=== PATIENT | female | born 1970 | race Caucasian/White ===

== ENCOUNTER 2025-03-23 08:34 | Outpatient (OUT) | payer OTHER, SELFPAY ==
--- OUTSIDE RECORDS SUMMARY | 2024-02-21 09:00 | XMS_ITS ---
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 Chavis, Needs refill of med as well Medications Medication SIG (Take, Route, Frequency, Duration) Notes Start Date End Date Status Valsartan-hydroCHLOROthiaz kurt 160-12.5 MG 1 tablet Orally Once a day for 90 days 02/21/2024 Active Social History Tobacco Use: Social History Observation Description Date Details (start date - stop date) Current Smoker 08/09/1986 - NA Tobacco Control (Standard) Question Answer Notes Tobacco use: Current smoker When did you start smoking? 08/09/1986 How often do you smoke cigarettes? Every day How many cigarettes a day do you smoke? 11-20 Additional Findings: Tobacco user Modera te cigarette smoker (10-19 cigs/day) AUDIT-C (Standard) Question Answer Notes Did you have a drink contain ing alcohol in the past year? Yes How often did you have six o r more drinks on one occasion in the past year? 2 to 4 times a month (2 points) How many drinks did you have on a typical day when you were drinking in the past year? 1 or 2 drinks (0 point) How often did you have a dri nk containing alcohol in the past year? 2 to 3 times a week (3 points) Points 5 Interpretation Positive Problems Problem Type SNOMED Code ICD Code Onset Dates Problem Status W/U Status Risk Notes Problem Smoker (16209674) Smoker (F17.200) Active confirmed Problem Aneurysm (12649333) Aneurysm (I72.9) Active confirmed Problem Hypertension (58208467) Hypertension (I10) Active confirmed Problem Hypertension (96421671) HTN (hypertension) (I10) Active confirmed Vital Signs Weight 159.2 lbs 02/21/2024 Height 66 in 02/21/2024 Blood pressure systolic 152 mm Hg 02/21/20 24 Blood pressure diastolic 90 mm Hg 024 BMI 25.69 kg/m2 02/21/2024 Encounters Encounter Location Date Provider Diagnosis [facility] [address] [place] [address] 02/21/2024 Lillie Dillard HTN (hypertension) I10 Assessments Encounter Date Diagnosis (ICD Code) Assessment Notes Treatment Notes Treatment Clinical Notes Section Notes 02/21/2024 HTN (hypertension) (ICD-10 - I10) little high today continue monitor Plan Of Treatment Medication Medication Name Sig Start Date Stop Date Notes Valsartan-hydroCHLOROthiazid e 160-12.5 MG 1 tablet Orally Once a day for 90 days 02/21/2024 Treatment Notes Assessment Notes HTN (hypertension) little high today continue monitor Next Appt Details Follow Up: 1 Year,prn, Reaso n: Progress Notes * IVAN MaiteDOB: [birth year] (54 yo F)Acc No.[id number]:02/21/2024 New Patient Patient: Maite BUTLER Provider: Nereyda Dillard ([facility]), CAMOUFLAGE SPECIALIST :1970 A ge:54 Y S ex:Female Date:02/21/2024 [address] [address] Check In:01:06 PM ESTCheck O ut:01:37 PM EST Subjective: * Chief Complaints: * 1 . 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 Chavis. 2. Needs refill of med as well. * HPI: D epression Screening: PHQ-2 (2015 Edition) L ittle interest or pleasure in doing things??Not at all F eeling down, depressed, or hopeless? N ot at all T otal Score 0 G eneral: hx brain aneursym, saw neuro, told to follow only with headaches some SOB, tightness at times, smokes labs last year about this time, wants to skip a year, labs ok smokes, would like to quit, has tried many things, tried chantix thinking about laser accupuncture procedure next. * ROS: G eneral/Constitutional: Fever d enies. H eadache d enies. W eight loss?denies. O phthalmologic: Discharge d enies. E ye Pain d enies. I tching and redness d enies. E NT: Nasal discharge d enies. N carson congestion d enies.?Sore throat d enies. C ardiovascular: Chest tightness/ heavy pressure d enies. R apid heart rate d enies. S welling of extremities d enies. C hest pain d enies. ? R espiratory: Productive cough d enies. C hest pain d enies. C ough d enies. S hortness of breath a dmits, chronic. W heezing d enies. G astrointestinal: Abdominal pain d enies. C onstipation d enies. D ecreased appetite d enies. D iarrhea d enies. N ausea d enies. V omiting?denies. G enitourinary: Urinary incontinence d enies. P ainful urination d enies. M usculoskeletal: Back pain d enies. N luda pain d enies. M uscle aches d enies. S kin: Rash d enies. S kin lesion(s) d enies. ? * Active Problem List I10 Hypertension Modified On:02/21/2024/U Status:confirmed I72.9 Aneurysm Modified On:02/21/2024/U Status:confirmed I10 HTN (hypertension) Modified On:02/21/2024/U Status:confirmed F17.200 Smoker Modified On:02/21/2024U Status:confirmed * Medical History: H ypertension, Aneurysm, Smoker. * Surgical History: T onsillectomy , Aneurysm Brain . * Hospitalization/Major Diagno stic Procedure: s ee above , Child . * Family History: F ather: , Kidney Cancer, Esophageal Cancer, diagnosed with Unspecified essential hypertension, Other malignant neoplasm of unspecified site, Chronic kidney disease, unspecified. M other: alive, Atrial Fibrillation. B rother(s): alive. S ister(s): anxietyAneurysm brain- , diagnosed with Unspecified essential hypertension. D nael(s): alive. P aternal Grandmother: Aortic Aneurysm. 1 brother(s) , 2 sister(s) - healthy. 2 daughter(s) - healthy. .? 1 sister . * Social History: T obacco Use: T obacco Control (Standard) T obacco use: C urrent smoker W hen did you start smoking? 0 08/09/1986 H ow often do you smoke cigarettes? E very day H ow many cigarettes a day do you smoke? 1 1-20 A dditional Findings: Tobacco user M oderate cigarette smoker (10-19 cigs/day) D rug/Alcohol: A RADHA-C (Standard) D id you have a drink containing alcohol in the past year? Y es H ow often did you have six or more drinks on one occasion in the past year? 2 to 4 times a month (2 points) H ow many drinks did you have on a typical day when you were drinking in the past year? 1 or 2 drinks (0 point) H ow often did you have a drink containing alcohol in the past year? 2 to 3 times a week (3 points) P oints 5 I nterpretation P ositive * Medications: T aking Valsartan-hydroCHLOROthiazide 160-12.5 MG Tablet 1 tablet Orally Once a day * Allergies: N .K.D.A. Objective: * Vitals: W t:159.2lbs, Ht: 66 in, BP:152/90mm Hg, BMI:25.69Index, Ht-cm: 167.64 cm, Wt-k.21 kg. * Examination: G eneral Examinations: GENERAL APPEARANCE: a lert and oriented, i n no acute distress. EYES: conjunctiva normal, sclera non-icteric. LUNGS: c lear to auscultation bilaterally. CARDIO: regular rate and rhythm, S1, S2 normal, no murmurs, no edema. ABDOMEN: s oft, nontender. MUSCULOSKELETAL G ait and station normal. SKIN: warm and dry. Assessment: * Assessment: 1. H TN (hypertension) - I10 (Primary) Plan: * Treatment: * Preventive Medicine: Screenings/Counseling: B [facility] ACTION PLAN Above Normal BMI Follow-up D ietary management education, guidance, and counseling * Follow Up: 1 Year,prn * * Sign off status: Completed Visit Status: C HK (Check Out) true * Provider: Nereyda Dillard ([facility]), CAMOUFLAGE SPECIALIST Date: 0 02/21/2024 Generated for Rasheeda wilson/Pepe/eTransmitting on: 0 03/23/2025 08:41 AM EDT History and Physical Notes * HPI (History of Present Illness) Category Sub-Category Detail Notes Category Not es General hx brain aneursym, saw neuro, told to follow only with headaches some SOB, tightness at times, smokes labs last year about this time, wants to skip a year, labs ok smokes, would like to quit, has tried many things, tried chantix thinking about laser accupuncture procedure next Depression Screening PHQ-2 (2015 Edition) Little interest or pleasure in doing things?: Not at all Feeling down, depressed, or hopeless?: N ot at all Total Score: 0 Examination Category Sub-Category Detail Notes Category Not es General Examinations GENERAL APPEARANCE: alert a nd oriented, in no acute distress EYES: conjunctiva normal, sclera non-icteric CARDIO: regular rate and rhy thm, S1, S2 normal, no murmurs, no edema LUNGS: clear to auscultatio n bilaterally ABDOMEN: soft, nontender SKIN: warm and dry BACK: MUSCULOSKELETAL: Gait and station nor mal
--- OUTSIDE RECORDS SUMMARY | 2025-03-15 04:30 | XMS_ITS ---
Author Organization [facility] Ma in [place] Address [address] [place] [address] Care Team Providers Care Culinary Manager Name Role Phone Lillie Dillard Primary Care Provider Allergies No Known Allergies REASON FOR VISIT yearly wellness, patient is concerned about ingrown groin hairs, asking for a script for clindamycin 1% gel Medications Medication SIG (Take, Route, Frequency, Duration) Notes Start Date End Date Status Valsartan-hydroCHLOROthiaz kurt 160-25 MG 1 tablet Orally Once a day for 30 days Active Clindagel 1 % 1 application Sales Engineer ally Once a day 03/15/2025 Active Social History Tobacco Use: Social History [...] week (3 points) Points 5 Interpretation Positive Vital Signs Weight 154.8 lbs 03/15/2025 Height 66 in 03/15/2025 Blood pressure systolic 148 mm Hg 03/15/20 25 Blood pressure diastolic 82 mm Hg 025 BMI 24.98 kg/m2 03/15/2025 Encounters Encounter Location Date Provider Diagnosis [facility] [place] [address] [place] [address] 03/15/2025 Lillie Dillard Wellness examination Z00.00 and Hypertension I10 Assessments Encounter Date Diagnosis (ICD Code) Assessment Notes Treatment Notes Treatment Clinical Notes Section Notes 03/15/2025 Wellness examination (ICD-10 - Z00.00) ROS done exam done no specialists defers other preventive testing, was discussed stop smoking encouraged 03/15/2025 Hypertension (ICD-10 - I10) increase dose hctz, fu for blood pressure check 1-2 weeks Plan Of Treatment Medication Medication Name Sig Start Date Stop Date Notes Valsartan-hydroCHLOROthiazid e 160-25 MG 1 tablet Orally Once a day for 30 days Clindagel 1 % 1 application Sales Engineer ally Once a day 03/15/2025 Treatment Notes Assessment Notes Wellness examination ROS done exam done no specialists defers other preventive testing, was discussed stop smoking encouraged Hypertension increase dose hctz, fu for blood pressure check 1-2 weeks Pending Test Test Name Order Date HEMOGLOBIN A1C (GLYCO) 03/15/2025 IRON, TOTAL 03/15/2025 LIPID PANEL (CHOL/TRIG/HDL/LDL) 03/15/20 25 VITAMIN D, 25 LEVEL (TOTAL) 03/15/2025 Insulin Level 03/15/2025 THYROID PANEL (T4/TSH/FREE T3) 5 CMP (COMP MET HEARN) w/eGFR CKD-EPI 2024 CBC WITH DIFF 03/15/2025 Next Appt Details Follow Up: 1 Year,prn,2 Week s, Reason: Progress Notes * Maite LOVEDOB: [birth year] (55 yo F)Acc No.[id number]:03/15/2025 Progress Note Patient: Maite BUTLER Provider: Nereyda Dillard ([facility]), STRAIGHTEDGE WORKER :1970 A ge:55 Y S ex:Female Date:03/15/2025 Address:[address] [place] [address] , [place], [id number] Check In:08:27 AM ESTCheck O ut:08:52 AM EST Subjective: * Chief Complaints: * 1 . Yearly wellness. 2. Patient is concerned about ingrown groin hairs, asking for a script for clindamycin 1% gel. * HPI: D epression Screening: PHQ-2 (2015 Edition) L ittle interest or pleasure in doing things??Not at all F eeling down, depressed, or hopeless? N ot at all T otal Score 0 * ROS: G eneral/Constitutional: Fever d enies. [...] ough d enies. S hortness of breath d enies. W heezing d enies. ? G astrointestinal: Abdominal pain d enies. C onstipation d enies. D ecreased appetite d enies. D iarrhea d enies. N ausea d enies. V omiting?denies. G enitourinary: Urinary incontinence d enies. P ainful urination d enies. M usculoskeletal: Back pain d enies. N luda pain d enies. M uscle aches d enies. S kin: Rash d enies. S kin lesion(s) b oils or ingrown hairs, bikini line at times, none right now. * Active Problem List I10 Hypertension Modified On:02/21/2024/U Status:confirmed I72.9 Aneurysm Modified On:02/21/2024/U Status:confirmed I10 HTN (hypertension) Modified On:02/21/2024/U Status:confirmed F17.200 Smoker Modified On:07/15/2024W/U Status:confirmed * Medical History: H ypertension, Aneurysm, Smoker. * Surgical History: T onsillectomy , Aneurysm Brain . * Hospitalization/Major Diagno stic Procedure: s ee above , Child . * Family History: F ather: , Kidney Cancer, Esophageal Cancer, diagnosed with Other malignant neoplasm of unspecified site, Unspecified essential hypertension, Chronic kidney disease, unspecified. M other: alive, Atrial Fibrillation. B rother(s): alive. S ister(s): anxietyAneurysm brain- , diagnosed with Unspecified essential hypertension. D francoradhaer(s): alive. P aternal Grandmother: Aortic Aneurysm. 1 [...] Tablet 1 tablet Orally Once a day , Medication List reviewed and reconciled with the patient * Allergies: N .K.D.A. Objective: * Vitals: W t:154.8lbs, Ht: 66 in, BP:148/82mm Hg, BMI:24.98Index, Ht-cm: 167.64 cm, Wt-k.22 kg. * Examination: G eneral Examinations: GENERAL APPEARANCE: a lert and oriented, i n no acute distress. EYES: c onjunctiva normal, sclera non-icteric. EARS: e xternal auditory canals are patent. Tympanic membranes are pearly reyna and mobile. NOSE: n ormal external appearance. LUNGS: d iminished breath sounds in the bases, scattered rhonci. CARDIO: r egular rate and rhythm, S1, S2 normal, no murmurs, no edema. ABDOMEN: s oft, nontender. MUSCULOSKELETAL: G ait and station normal. SKIN: w arm and dry. Assessment: * Assessment: 1. W ellness examination - Z00.00 (Primary) 2 . H ypertension - I10 ? Plan: * Treatment: 2. H ypertension Refill Valsartan-hydroCHLOROthiazide Tablet, 160-25 MG, 1 tablet, Orally, Once a day, 30 days, 30 Tablet, Refills 11. Notes: increase dose hctz, fu for blood pressure check 1-2 weeks 3. O thers Start Clindagel Gel, 1 %, 1 application, Externally, Once a day, 1, Refills 1. * Preventive Medicine: Screenings/Counseling: T [place]AC[place] ACTION PLAN Patient counselled on the dangers of tobacco use and urged to quit. . * Follow Up: 1 Year,prn,2 Weeks * * Electronically signed by Brooklyn Dillard NP, MANAGER TRAINING AND DEVELOPMENT.STRAIGHTEDGE [id number] on 03/15/2025 at 03:52 PM EDT Sign off status: Completed Visit Status: C HK (Check Out) true * Provider: Nereyda Dillard ([facility]), STRAIGHTEDGE WORKER Date: 0 03/15/2025 Generated for Rasheeda wilson/Pepe/eTlynnettesmitting on: 0 03/23/2025 08:40 AM EDT History and Physical Notes * HPI (History of Present Illness) Category Sub-Category Detail Notes Category Not es Depression Screening PHQ-2 (2015 Edition) Little interest or pleasure in doing things?: Not at all Feeling down, depressed, or hopeless?: N ot at all Total Score: 0 Examination Category Sub-Category Detail Notes Category Not es General Examinations GENERAL APPEARANCE: alert a nd oriented, in no acute distress EYES: conjunctiva normal, sclera non-icteric EARS: external auditory ca nals are patent. Tympanic membranes are pearly reyna and mobile NOSE: normal external appe arance THROAT: CARDIO: regular rate and rhy thm, S1, S2 normal, no murmurs, no edema LUNGS: diminished breath so unds in the bases, scattered rhonci ABDOMEN: soft, nontender SKIN: warm and dry BACK: MUSCULOSKELETAL: Gait and station nor mal LYMPH NODES:
--- OUTSIDE RECORDS SUMMARY | 2025-03-23 08:41 | XMS_ITS | Patient Health Record ---
Author Organization The [facility] [place] in [place] Address [address] [place] [address] Care Team Providers Care Carpenter Bridge Name Role Phone Lillie Dillard Primary Care Provider [phone] Allergies No Known Allergies Reason For Referral No Information Medications Medication SIG (Take, Route, Frequency, Duration) Notes Start Date End Date Status Valsartan-hydroCHLOROthiaz kurt 160-25 MG 1 tablet Orally Once a day for 30 days Active Clindagel 1 % 1 application Shuttle Filler ally Once a day 03/15/2025 Active Social [...] Problem Status W/U Status Risk Notes Problem Hypertension (35342543) Hypertension (I10) Active confirmed Problem Aneurysm (64487088) Aneurysm (I72.9) Active confirmed Problem Hypertension (24700207) HTN (hypertension) (I10) Active confirmed Problem Smoker (93867156) Smoker (F17.200) Active confirmed Vital Signs Blood pressure diastolic 82 mm Hg 03/15/2025 Height 66 in 03/15/2025 Blood pressure systolic 148 mm Hg 03/15/2025 Weight 154.8 lbs 03/15/2025 BMI 24.98 kg/m2 03/15/2025 Encounters Encounter Location Date Provider Diagnosis [facility] [address] [place] [address] 02/28/2025 Lillie Dillard [facility] [address] [place] [address] 03/15/2025 Lillie Dillard Wellness examination Z00.00 and Hypertension I10 Assessments Encounter Date Diagnosis (ICD Code) Assessment Notes Treatment Notes Treatment Clinical Notes Section Notes 03/15/2025 Wellness examination (ICD-10 - Z00.00) ROS done exam done no specialists defers other preventive testing, was discussed stop smoking encouraged 03/15/2025 Hypertension (ICD-10 - I10) increase dose hctz, fu for blood pressure check 1-2 weeks Plan Of Treatment Pending Test Test Name Order Date HEMOGLOBIN A1C (GLYCO) 03/15/2025 IRON, TOTAL 03/15/2025 LIPID PANEL (CHOL/TRIG/HDL/LDL) 03/15/20 25 VITAMIN D, 25 LEVEL (TOTAL) 03/15/2025 Insulin Level 03/15/2025 THYROID PANEL (T4/TSH/FREE T3) CMP (COMP MET HEARN) w/eGFR CKD-EPI 2024 CBC WITH DIFF 03/15/2025 Insurance Providers Payer Name Payer Address Payer Phone Subscriber Number Group Number Insured Name Patient Relationship to Insured Coverage Start Date Coverage End Date O [address] [place], [place] [id number] Maite Ortiz Self - patient is the insured Medical (General) History Medical History History ICD Code Hypertension I10 Aneurysm I72.9 Smoker F17.200 Surgical History Surgery Date(Month/Year) Tonsillectomy Aneurysm Brain Hospitalization History Reason Date(Month/Year) Child see above
[2025-03-23 09:02] LABS: Hematocrit 50.4 % (36.0-48.0); Hemoglobin 17.6 g/dL (12.0-16.0); Immature Granulocytes Abs Auto 0.02 10^3/uL (0.00-0.03); Immature Granulocytes Pct Auto 0.3 % (0.0-0.5); Lymphocytes Absolute Auto 1.8 10^3/uL (1.2-3.8); Mean Corpuscular HGB Conc 34.9 g/dL (29.9-35.2); Mean Corpuscular Hemoglobin 32.1 pg (26.7-34.0); Mean Corpuscular Volume 91.8 fL (81.0-99.0); Platelet Count 267 10^3/uL (150-450); Red Blood Count 5.49 10^6/uL (4.20-5.40); White Blood Count 7.3 10^3/uL (4.0-11.0)
[2025-03-23 10:30] LABS: Alanine Aminotransferase 27 U/L (14-59); Albumin Globulin Ratio 1.0; Albumin Level 4.0 g/dL (3.4-5.0); Alkaline Phosphatase 75 U/L (46-116); Anion Gap 12.4; Aspartate Amino Transferase 21 U/L (15-37); Blood Urea Nitrogen 7.0 mg/dL (7.0-18.0); Calcium 9.5 mg/dL (8.5-10.1); Carbon Dioxide 29.3 mmol/L (21.0-32.0); Chloride 98 mmol/L (98-107); Cholesterol 225 mg/dL (<=200); Estimated GFR (African America >60 (>=60 mL/min/1.73m^2); Estimated GFR (Non-African Ame >60 (>=60 mL/min/1.73m^2); Free T3 3.03 pg/mL (2.18-3.98); Globulin 4.0 g/dL; Glucose 120 mg/dL (74-106); HDL Cholesterol 72 mg/dL (40-60); Potassium 3.7 mmol/L (3.5-5.1); Sodium 136 mmol/L (136-145); Thyroid Stimulating Hormone 2.331 uIU/mL (0.358-3.740); Total Protein 8.0 g/dL (6.4-8.2); Triglycerides 93 mg/dL (<=150); VLDL CHOLESTEROL 18.6 mg/dL
[2025-03-23 12:39] LABS: Iron 144.0 ug/dL (50.0-170.0)
== END 2025-03-23 08:35 | disposition home or self-care (01) ==
LOC: LAB 08:39
PROVIDERS: PCP Nurse Practitioner Family; Visit Provider Nurse Practitioner Family
DX: Z00.00 Encounter for general adult medical examination without abnormal findings (principal)
CPT/HCPCS: 36415; 80053; 80061; 82306; 83036; 83525; 83540; 84436; 84443; 84481; 85025